=== PATIENT | female | born 1955 | race Caucasian/White ===

== ENCOUNTER 2018-05-25 11:23 | Emergency (ER) | payer MEDICARE, MEDICAID ==
[~2018-05-25] VITALS: Ht 154.9 cm; Wt 80.0 kg
[~2018-05-25 11:23] MED LIST: CLON-528 PO; ESCI5TAB PO; ESTR0.6261 PO; FLUT10SP; FURO-150 PO; GABA100C PO; K DUR; KEN0.1O TP; LEVO88TA28 PO; MELO-82 PO; OMEP40CA37 PO; WEL75T PO; bactrim; keflex
[2018-05-25 11:28] VITALS: BP 158/88
[2018-05-25] MEDS ORDERED: HYDR-565 PO (11:36)
[2018-05-25] MEDS ORDERED: PENI500T2 PO (11:36)
== END 2018-05-25 11:43 | disposition home or self-care (01) ==
LOC: ER 11:24
DX: K08.89 Other specified disorders of teeth and supporting structures (principal); M19.90 Unspecified osteoarthritis, unspecified site; Z87.442 Personal history of urinary calculi; Z90.710 Acquired absence of both cervix and uterus; Z98.890 Other specified postprocedural states; Z60.2 Problems related to living alone; Z88.5 Allergy status to narcotic agent; Z79.899 Other long term (current) drug therapy
CPT/HCPCS: 99283